=== PATIENT | female | born 2005 | race Caucasian/White ===

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

== ENCOUNTER 2025-06-24 11:45 | Outpatient (CLI) | payer BC, SELFPAY | END 2025-06-24 11:46 | disposition home or self-care (01) | PROVIDERS: PCP Physician Assistant Medical; Visit Provider Family Medicine | DX: N91.1 Secondary amenorrhea (principal) | CPT/HCPCS: 82670; 83001; 84146; 84443 ==